=== PATIENT | female | born 1950 | race Caucasian/White ===

== ENCOUNTER 2024-11-29 13:21 | Outpatient (CLI) | payer MEDICARE, SELFPAY ==
--- NOTE | ~2024-11-29 | XR_ITS ---
EXAMINATION: XR sacrum coccyx min 2V, 11/29/2024 13:36 CDT HISTORY: URGE INCONTINENCE COMPARISON: No comparisons available. Findings: No acute fracture or malalignment. Mild sclerosis of the sacroiliac joints, no erosions or bridging osteophyte formation. Soft tissues unremarkable. Impression: No acute fracture or malalignment. Reviewed, dictated and finalized at location P. Impression: No acute fracture or malalignment.
--- OUTSIDE RECORDS SUMMARY | 2024-11-29 13:56 | XMS_ITS | Data Portability ---
Author Organization [facility], [address] [facility] ([place]) Address [address] 4th [place] [address] Care Team Providers Care Dermatology Physician Assistant Name Role Phone REGGIE RASMUSSEN Primary Care Provider ASHLEY MATA Product Safety Officer Assessment Encounter Date Assessment Date Assessment LastModified by Organization Details LastModified Time 08/27/2023 08/27/2023 1. Irritated seborrheic keratoses : We discussed the benign nature of the lesions and that it is legitimately irritated. The risks and benefits of the procedure, the risks and benefits of alternative procedures, as well as the possible consequences of not undergoing the procedure were discussed. The potential for recurrence and development of further lesions was discussed. The patient verbalizes understanding and gives consent to proceed. The lesions were treated with liquid nitrogen. The patient tolerated the procedure well. Post-treatment instructions were discussed. 2. Seborrheic keratoses: We discussed the fact that these are benign lesions requiring no treatment. The patient was advised that more such lesions may develop. The patient is not bothered by the lesions and does not wish to have them treated. We will observe. 3. We discussed the fact that lentigines are actinically induced and that they are benign. We discussed the fact that they should be watched carefully for change. We discussed the importance of photoprotection using protective clothing and sunscreen with SPF thirty or higher on a regular basis. Return prn and in [address] Love as scheduled. Ketty left without further questions or concerns. [email or web address] Not available 08/27/2023 09:25:06 04/21/2024 04/21/2024 HISTORY OF PRESE NT ILLNESS: Ms. Pierre is a 73-year-old female who presents for her annual follow-up for history of right breast early stage cancer hormone receptor positive and HER2/bernardo low. She was diagnosed in 2012 and completed endocrine therapy in 2018 and since then has been on annual follow-up. Today she denies any complaints of breast pain or lump. Her last mammogram in October 2023 was unremarkable. The patient informs today regarding the use of topical vaginal cream for her history of urinary incontinence. The patient has questions regarding that. No chest pain, palpitations or shortness of breath. Her appetite and energy are overall stable. REVIEW OF SYSTEMS: CONST: Appetite unchanged. No weight loss or new pain. EYES: No visual change. ENT: Hearing normal. No swallowing difficulties. RESP: No shortness of breath, or new cough. CV: No chest pain, syncope, or increased edema. GI: No change in bowel habits. No blood in the stool. : No dysuria, hematuria, or flank pain. MSK: No new bone pain. SKIN: No rashes. NEURO: No headaches/dizzines s. H/L/IMM: No enlarged lymph nodes, easy bleeding, or bruising. Reviewed past medical history, surgical history, family history, social history. No changes except as noted. PHYSICAL EXAMINATION: CONST: Alert and oriented. Pleasant, appears to be of stated age, in no acute distress. EYES: No icterus. Extraocular movements are intact. No conjunctival pallor. ENT: Oral mucosa pink and moist with no oral ulcers. Neck: Supple, no palpable mass. RESP: The lungs are clear to auscultation without wheezes, rhonchi. CV: Heart rhythm is regular. GI: Abdomen soft, nontender; no hepatosplenomegaly . MSK: Head: Atraumatic. Normocephalic. No edema in lower extremities. SKIN: No jaundice. Warm, well perfused. No generalized skin rash. PSYCH: Stable mood and affect. Mental/emotional status is appropriate. NEURO: No speech difficulty. The patient is alert and oriented x3. No gross neurological deficits are noted. H/L/IMM: No palpable cervical, supraclavicular or axillary adenopathy. Performance status 0. BREAST: Right breast skin and nipple normal with no palpable masses, axillary lymph nodes. Left breast skin and nipple normal with no palpable masses, axillary lymph nodes. DATA REVIEWED: Reviewed 12-point review of systems, past medical history, surgical history, family history, social history. No changes except as noted. ASSESSMENT: 1. A 73-year-old postmenopausal female with stage I, pT1aNX right breast invasive ductal cancer, grade 2, ER positive, RI negative, HER2/bernardo negative diagnosed 2012, post 5 years of tamoxifen completed in 2018. 2. Osteopenia with compression deformity T and L-spine/osteoporos is. 3. Hysterectomy with bilateral oophorectomies. COMORBIDITIES: Coronary artery disease. PLAN: 1. Discussed with the patient the clinical symptoms, diagnosis, and plan. The patient clinically does not have any concerns for recurrence and her examination is unremarkable. We reviewed the patient's mammogram from October 2023 which was stable. Another mammogram for October 2024 was ordered. 2. She will continue with monthly self-examination. The patient is also encouraged for weightbearing exercises. 3. We discussed the role of topical estrogen for postmenopausal health, but the side effects of systemic absorption with her underlying risk of estrogen positive breast cancer. The patient is encouraged to use topical estrogen 3 times a week as needed. She will discuss with her specialist. 4. Her next colonoscopy in due in April 2032. 5. Continue cardiac medication and heart-healthy diet. Follow up in one year. saw tyrell Not available 04/22/2024 09:32:07 06/15/2024 06/15/2024 1. We discussed the fact that lentigines are actinically induced and that they are benign. We discussed the fact that they should be watched carefully for change. We discussed the importance of photoprotection using protective clothing and sunscreen with SPF thirty or higher on a regular basis. 2. Seborrheic keratoses: We discussed the fact that these are benign lesions requiring no treatment. The patient was advised that more such lesions may develop. The patient is not bothered by the lesions and does not wish to have them treated. We will observe. Quote sheet given to patient. 3. Hemangiomas: We discussed the fact that these are benign lesions requiring no treatment. The patient was advised that more such lesions may develop. The patient is not bothered by the lesions and does not wish to have them treated. We will observe. 4. Lesion on left nasolabial fold. Probable Cyst vs IDN. We discussed the differential diagnosis. She is not bothered by lesion, we will observe. I asked her to return in 1.5-[address] Love. Ketty will call with any questions or concerns in the meantime. [email or web address] Not available 06/15/2024 17:12:48 Plan of Treatment Reminders Order Date Submit Date Provider Last Modified By Organization Details Last Modified Time Details Appointments [facility] Patient 20.EST 2025 10:30A M Dr. Lisseth Chauhan Not available Not available Not available Annual [facility] Visit 15.EST 2025 01:00P M Winter Teague Not available Not available Not available [facility] Patient 10.EST 2025 10:40A M Dr. Nara Love Not available Not available Not available Lab None recorded . Referral None recorded . Procedures None recorded . Surgeries None recorded . Imaging MAMMO, screenin g, digital, bilatera l 2023 024 [email or web address] Tx Only - Tx Radiology, [facility] [place] [address], [id number], 01/22/2024 08:55:36 Medication Orders None recorded . Patient TargetsNo targets recorded. Patient Instructions Encounter Date Encounter Id Patient Instructions Last Modified By Organization Details Last Modified Time 08/19/2023 [id number] Pap smear guidelines discussed. Aware no longer needs Pap smears. Self-breast exam instructions reviewed. STD prevention discussed. Healthy diet and exercise was encouraged. Mammogram screening recommended and order given. Encouraged pt to remain up to date with colonoscopy screening. Bone health discussed. Encouraged calcium and vitamin D supplementation. Encouraged pt to remain up to date with bone density scan. Osteoporosis managed per PCP. Post-menopausal bleeding precautions were given. Pt states she will f/u with Pcp per [facility] for c/o worsening urinary incontinence and managment of oxybutynin. [email or web address] Not available 08/19/2023 12:24:12 Reason for Referral None Reported. Results Created Date Observation Date Name Description Value Unit Range Abnormal Flag Note LastModifiedBy Organization Detail LastModifiedTime 10/28/19 24 10/28/2023 MAMMO , scree mike, tomos ynthe sis, bilat eral [facility] [address] [place] [address] [phone] Name: KETTY EDWRADS Age: 73 : 1950 Exam Date: 2023 ACCESS ION: [id number] CLINIC AL HISTOR Y: Heidien t is 73 years old and is seen for screen ing. The patien t has a histor y of lumpec faustino proced ure for invasi ve ductal carcin eliot in the right axilla in May, and Stereo tactic core biopsy proced ure reveal ed ductal carcin eliot-in -situ in the right breast in May,. The patien t has the follow ing family histor y of breast cancer : matern al grandm other, at age 60, Unspec ified cancer . No BRCA test taken. No PALB2 test taken. FILMS COMPAR ED: The presen t examin ation has been compar ed to prior imagin g [facility], and at [facility] on 2020, 2021 and 2022. MAICOL MAMMOG JUDIT: Views perfor med: Bilate ral CC w/ Maicol; bilate ral MLO w/ Maicol. There are scatte red areas of fibrog landul ar densit y. There are no suspic ious masses , calcif icatio ns or areas of ced ectura l distor tion. IMPRES HERNANDO: There is no mammog raphic eviden ce of malign taqueria. A routin e follow -up mammog judit in 1 year is recomm ended. The patien t will be entere d into an automa oumou remind er system to schedu le a mammog judit in 1 year. The patien t has been or will be contac oumou with the result s of this exam. ACR BI-RAD S Catego ry 1 - Negati ve To report a qualit y concer n regard ing this report , please call the Medica l Imagin g Qualit y Assura nce [place] e at press zero to reach the Radiol ogist. Electr onical ly signed by: TALHA FERNANDEZ MD Final Report Dictat ed: 12:22 Ahmet RODRIGUEZ, Talha ferguson Signed : 12:22 Ahmet RODRIGUEZ, Talha grijalva Tx Only - [facility] [address] [place] [address], [id number], 10/28/2023 14:18:31 10/29/19 25 10/28/2024 destin 3D [facility] [address] [place] [address] Name: KETTY EDWARDS Age: 74 : 1950 Exam Date: 2024 ACCESS ION: [id number] CLINIC AL HISTOR Y: Chen astudillo is 74 years old and is seen for screen ing. The chen t has a histor y of lumpec faustino proced ure for invasi ve ductal carcin eliot in the right axilla in May, and Stereo tactic core biopsy proced ure reveal ed ductal carcin eliot-in -situ in the right breast in May,. The chen astudillo has the follow ing family histor y of breast cancer : 2 matern al grandm others , at age 60, Unspec ified cancer . No PALB2 test taken. FILMS COMPAR ED: The presen t examin ation has been compar ed to prior imagin g studie s perfor med at [facility] on 2017 and 2019, and at [facility] on 2018, 2020, 2021, 2022 and 2023. MAICOL MAMMOG JUDIT: Views perfor med: Bilate ral CC w/ Maicol; bilate ral MLO w/ Maicol. There are scatte red areas of fibrog landul ar densit y. There are no suspic ious masses , calcif icatio ns or areas of ced ectura l distor tion. IMPRES HERNANDO: There is no mammog raphic eviden ce of malign taqueria. A routin e follow -up mammog judit in 1 year is recomm ended. The patien t will be entere d into an automa oumou remind er system to schedu le a mammog judit in 1 year. The patien t has been or will be contac oumou with the result s of this exam. ACR BI-RAD S Catego ry 1 - Negati ve Electr onical ly signed by: TALHA FERNANDEZ MD Final Report Dictat ed: 13:18 Talha Fernandez MD Signed : 13:18 Ahmet RODRIGUEZ, Talha grijalva Tx Only - [facility] [address] [place] [address], [phone], 10/28/2024 14:30:17 10/29/19 25 10/28/2024 MAMMO , scree mike, tomos ynthe sis, bilat eral No observ ation record ed. JOSE JUAN Not Available 2024 17:12:58 Result Notes Documentation Provider Name and Address Organization Details Recorded Time Mammo, Screening, Tomosynthesis, Bilateral : [facility] [address] [place] [address] Name: KETTY PIERRE Age: 73 : 1950 Exam Date: 10/28/2023 CLINICAL HISTORY: Patient is 73 years old and is seen for screening. The patient has a history of lumpectomy procedure for invasive ductal carcinoma in the right axilla in May, and Stereotactic core biopsy procedure revealed ductal kniijtsvx-oi-gqhc in the right breast in May,. The patient has the following family history of breast cancer: maternal grandmother, at age 60, Unspecified cancer. No BRCA test taken. No PALB2 test taken. FILMS COMPARED: The present examination has been compared to prior imaging studies performed at [facility] on 07/13/2019, and at [facility] on 07/18/2020, 10/18/2021 and 10/22/2022. MAICOL MAMMOGRAM: Views performed: Bilateral CC w/ Maicol; bilateral MLO w/ Maicol. There are scattered areas of fibroglandular density. There are no suspicious masses, calcifications or areas of architectural distortion. IMPRESSION: There is no mammographic evidence of malignancy. A routine follow-up mammogram in 1 year is recommended. The patient will be entered into an automated reminder system to schedule a mammogram in 1 year. The patient has been or will be contacted with the results of this exam. ACR BI-RADS Category 1 - Negative To report a quality concern regarding this report, please call the Medical Imaging Self Storage Manager Hotline at [phone] press zero to reach the Radiologist. Electronically signed by: SHAQ FERNANDEZ MD Final Report Dictated: 28-OCT-23 12:22 Ahmet RODRIGUEZ, Shaq Signed: 28-OCT-23 12:22 Ahmet RODRIGUEZ, Shaq Teague APRN, FIRE SYSTEMS INSPECTOR [address] [place] [address], [phone], [facility] 10/28/2023 14:18:31 Mammo, Screening, Tomosynthesis, Bilateral : This document (1 of 1) was received from [email or web address] on 10/28/2024 through Direct Message along with the following message body content: You have received a 3 page fax at 10/28/2024 8:46:20 PM. * The Caller-ID for this fax is unknown. If you have any questions regarding this message or your service contact Corporate Support: [place] Email: [email or web address] Phone: or Email: [email or web address] [email or web address] Phones: [phone] Thank you for using the [employer] service! Not Available [facility] 10/30/2024 02:43:38 Problems Name Problem SNOMED Code Status Onset Date Resolution Date Notes Provider Name and Address Organization Details Recorded Time Inflamed seborrheic keratosis 674007705 Active 2023 Marcello Regan PA-C [address] [place] [address], [phone], [facility] 4 09:23:41 Seborrheic keratosis 282795208 Active 2023 satinder Hollingsworth [facility] 5 16:23:23 Lentigo - freckle 814454632 Active 2023 Marcello Regan PA-C [address] [place] [address], [phone], [facility] 4 09:23:55 Infiltrating ductal carcinoma of breast, stage 1 923160765 Active 2024 [facility] 5 15:45:01 Osteopenia 932761585 Active 2024 [facility] 5 15:45:15 Lentiginosis 506962738 Active 2024 satinder Hollingsworth [facility] 5 16:23:50 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 Procedures Surgical History Date Name Laterality Status Provider Name and Address Organization Details Recorded Time Prq card stent w/angio 1 vsl completed Not Available Health Note 08/12/2023 13:03:13 Colonoscopy with biopsy completed Not Available Health Note 08/12/2023 13:03:13 Partial hysterectomy completed Not Available Health Note 08/12/2023 13:03:13 Imaging Results None recorded. Procedure Notes None recorded. Medical Equipment None Reported. Allergies Allergen ID Allergen Name Allergen Category Reaction Reaction Severity Criticality Documentation Date Start Date Code Code System Note Provider Name and Address Organization Details Recorded Time 606576 Substance with tetracycl ine structure (substanc e) medicatio n anaphylax is Not available Not available 03/31/20232007 41815 8001 SNOMED React ion: Throa t Swell ing; Not Available [facility] 4 23:36:09 Medications Name Sig Start Date Stop Date Status Note LastModified by Organization Details LastModified Time atorvastatin 10 mg tablet active Not Available Not Available Not Available oxybutynin chloride ER 10 mg tablet,extende d release 24 hr active Not Available Not Available Not Available metoprolol succinate ER 100 mg tablet,extende d release 24 hr active Not Available Not Available Not Available triamcinolone acetonide 55 mcg nasal spray aerosol USE 2 SPRAYS IN EACH NOSTRIL EVERY NIGHT AT BEDTIME active Not Available Not Available No t Available nitroglycerin 0.4 mg sublingual tablet active Not Available Not Available Not Available metoprolol succinate ER 25 mg tablet,extende d release 24 hr active Not Available Not Available Not Available estradiol 0.01% (0.1 mg/gram) vaginal cream APPLY PEA SIZE AMOUNT DIRECTLY TO URETHRAL OPENING DAILY active Not Available Not Available No t Available nitrofurantoin monohydrate/ma crocrystals 100 mg capsule TAKE 1 CAPSULE BY MOUTH TWICE DAILY active Not Available Not Available No t Available trospium 20 mg tablet TAKE 1 TABLET BY MOUTH DAILY FOR 1 WEEK. INCREASE TO TAKING 1 TABLET 2 TIMES DAILY active Not Available Not Available No t Available Gemtesa 75 mg tablet TAKE 1 TABLET BY MOUTH DAILY active Not Available Not Available No t Available Vitals Date Recorded Body height Oxygen saturation Oxygen saturation in Arterial blood by Pulse oximetry Heart rate Respiratory rate Body temperature Body mass index (BMI) Body weight Systolic And Diastolic Provider Name and Address Organization Details Last Updated DateTime 5 163.83 cm 100 % 100 % 58 /min 18 /min 97.7 [degF] 19.1 kg/m2 27719.9 4 g 128/74 mm[Hg] Bridget Paul [facility] 5 10:12:48 Date Recorded Body height Heart rate Oxygen saturation Oxygen saturation in Arterial blood by Pulse oximetry Provider Name and Address Organization Details Last Updated DateTime 06/15/2024 163.83 cm 79 /min 100 % 100 % Timmy Hollingsworth [facility] 06/15/2024 16:19:55 Date Recorded Body height Body mass index (BMI) Body weight Systolic And Diastolic Provider Name and Address Organization Details Last Updated DateTime 08/19/2023 163.83 cm 18.4 kg/m2 85919.85 g 124/74 mm[Hg] Coral Delgado [facility] 08/19/2023 12:10:09 Date Recorded Body height Body mass index (BMI) Body weight Heart rate Oxygen saturation Oxygen saturation in Arterial blood by Pulse oximetry Provider Name and Address Organization Details Last Updated DateTime 163.83 cm 18.9 kg/m2 63118.3 5 g 66 /min 99 % 99 % Timmy Hollingsworth [facility] 09:07:57 Social History Question Answer Notes LastModified by English Helper Details LastModified Time Do You Have An Advance Directive? Yes [email or web address] Information not available 08/20/2023 What Is Your Level Of Caffeine Consumption? Moderate [email or web address] Information not available 08/20/2023 What Is Your Code Status? DNR [email or web address] Information not available 08/20/2023 How Many Times Per Week Do You Exercise? 3-4 Times Per Week [email or web address] Information not available 08/20/2023 Do You Have A Medical Power Of Tunnel Mucker? Yes [email or web address] Information not available 08/20/2023 What Was The Date Of Your Most Recent Tobacco Screening? 08/27/2023 [email or web address] Information not available 08/20/2023 What Is Your Relationship Status? [email or web address] Information not available 08/20/2023 Sex: Unknown Functional Status Question Answer Note LastModified by English Helper Details LastModified Time Do you use any illicit or recreational drugs? No [email or web address] Information not available 08/20/2023 What is your level of alcohol consumption? None [email or web address] Information not available 08/20/2023 Are you currently employed? No [email or web address] Information not available 08/20/2023 What is your occupation? Retired [email or web address] Information not available 08/20/2023 What is your exercise level? Occasional [email or web address] Information not available 08/20/2023 Mental Status None recorded. Family History Relationship Description Onset Age of this Age Resolved Age Notes LastModified by Organization Details LastModified Time Mother Diabetes mellitus [email or web address] Not available 2023 13:03:12 Mother Osteoporosis [email or web address] Not availa ble 08/12/2023 13:03:12 Mother Disorder of thyroid gland [email or web address] Not available 2023 13:01:14 Father Heart disease [email or web address] Not available 2023 13:03:12 Maternal Grandfather Osteoporosis [email or web address] Not available 0 08/12/2023 13:03:12 Maternal Grandmother Alzheimer's disease [email or web address] Not available 2023 13:01:14 Maternal Grandmother Family history of malignant neoplasm [email or web address] Not available 2023 13:01:14 Maternal Grandmother Hypertensive disorder [email or web address] Not available 2023 13:01:14 Unspecified Relation Hypercholest erolemia [email or web address] Not available 2023 13:01:14 Sister Osteoporosis [email or web address] Not availa ble 08/20/2023 13:01:14 Medical History Condition Response Diabetes N Anxiety Disorder N Bleeding Disorder N Attention-deficit Hyperactivity Disorder N High Blood Pressure Y Arthritis N Hyperlipidemia N Cancer Y Stroke N Thyroid Problems N Asthma N Depression N COPD N Anemia N Seizures N Heart Disease Y Fibromyalgia N Osteoporosis Y Kidney Disease N Gynecological HistoryNo gynecological history recorded. Obstetrics History GPAL:G 0 P 0 0 0 0 Past Encounters Encounter ID Performer Location Encounter Start Date Encounter Closed Date Diagnosis/Indication Diagnosis SNOMED-CT Code Diagnosis ICD10 Code Diagnosis IMO Codes Diagnosis Note [id number] [facility] ([place] [address] [place] [address] [place] [address] 08/27/2023 08:47:07 08/27/2023 09:57:02 Inflamed seborrheic keratosis 611232619 L82.0 Seborrheic keratosis 394 758212 L82.1 Lentigo - freckle 145116 006 L81.4 [id number] Winter Teague, TUBE REPAIRER, FIRE SYSTEMS INSPECTOR [address] [facility] ([place]) [address] [place] [address] [place] [address] 08/19/2023 11:52:11 08/19/2023 15:19:49 Gynecologic examination 62642082 Z01.419 Additional diagnosis detail: Encounter for gynecologi gopi examinatio n Screening mammography 24 287839 Z12.31 Additional diagnosis detail: Screening mammogram, encounter for [id number] Lisseth Chauhan MD [address] [facility] ([place]) [address] [facility] [place] [address] 04/21/2024 09:56:55 04/21/2024 12:40:47 Infiltrating ductal carcinoma of breast, stage 1 814138298 C50.911 92777523 Osteopenia 789807636 M85 .80 [id number] [facility] ([place]) [address] [place], [place] [address] [address] 06/15/2024 15:54:25 06/15/2024 17:01:57 Seborrheic keratosis 621835909 L82.1 59559 Lentiginosis 414475649 L 81.4 4749013 Hemangioma of skin 19905 006 D18.01 446473 Health Concerns Section Related Observation LastModified by Organization Detai ls LastModified Time None Recorded Concern Status LastModified by Organization Details LastModified Time None Recorded Advance Directives Directive Y: Payers Insurance Date Sequence Insurance Name Policy Number Policy Robison Covered Member ID Robison Member ID Guarantor Name 06/16/2024 1 [employer] (MEDICARE REPLACEMENT/ ADVANTAGE - PPO) [id number] Ketty Pierre [id number] Ketty Pierre Notes Date Note Type Note Provider Name and Address Organization Details Recorded Time 08/19/2023 text/html Patient here for annual gynecology exam. She is a . She has c/o worsening urinary incontinence. The patient denies pelvic pain, abnormal vaginal discharge, breast problems, urinary symptoms, vasomotor symptoms, mood changes and bowel problems. The patient does self breast exams on occasion, does not have adequate calcium intake, she does not take a calcium supplement and she exercises regularly. She maintains a healthy diet. The patient is a non-smoker. The patient had a AMA for fibroids in 1989.The patient has had no changes in medical/surgical history since her last office visit.The patient is not currently sexually active. Last Mammogram: 10/22/2022Last Colonoscopy: 04/04/2022Last Bone Density: 10/2022 through [facility]- OsteoporosisLast pap: 05/29/1999 performed by: JAVI result: NegHistory of Abnormal Paps: NoHistory of Gestational Diabetes: NoHistory of Gestational Hypertension: NoHereditary Breast and Ovarian cancer screen: N/AHepatitis C: Declined - 05/22/2019 Winter Teague, YOGESH, [employer] [address] [place] [address], [phone], [facility] 08/20/2023 09:22:41 08/27/2023 text/html ROS as noted in the HPI EPVDate last seen:06/24/2022 Gown: No Reason For Visit: New lesion Duration: Months Location: Chest Quality: ____painful ____bleeding ____itching ____not healing ____burning ____scabbing __x__asymptomatic Prior Treatment: no prior treatment Past History of Skin Cancer: None Family History: History of skin cancerOther concerns: None History of Present Illness documented by nursing staff, verified and amended as necessary by the attending provider who electronically signs this note. Marcello Regan PA-C [address] [place] [address], [phone], [facility] 08/27/2023 09:26:55 04/21/2024 text/html DIAGNOSES: 1 . Stage I Tiny (1.5 mm) pT1a pNX cM0, ER positive/RI negative, HER-2/bernardo negative right breast carcinoma with associated DCIS, status post lumpectomy May 26, 2012. She completed radiotherapy and started tamoxifen August 2012 completed in August 2017. 2 . Elevated cholesterol. 3 . Hysterectomy for benign disease, with ovaries intact. 4 . Osteopenia with a history of Fosamax use. 5 . Compression deformity on x-ray at [facility] April 2016. 6 . Coronary artery disease status post stent July 2016. [facility] COMPLAINT: Breast cancer followup. PAST, FAMILY, AND/OR SOCIAL HISTORY: P ast History: See diagnosis list. F amily History: No change in family medical problems since June 03, 2012. Patient's paternal aunt was diagnosed with breast cancer in 2019 at age 82. S ocial History: She is , no history of smoking or drinking. She is fairly active. H rolando maintenance S he will be due for her colonoscopy in 2022. Lisseth Chauhan MD [address] [place] [address], [phone], [facility] 04/26/2024 07:20:15 06/15/2024 text/html EPVGown: YesDate last seen: 08/27/2023 Patient presents today for recheck of their skin. Patient has no history of skin cancer. New/changing moles or lesions: Yes- face. Duration: Months Associated symptoms: itching: No pain: No tenderness: No growth: No bleeding: No drainage: No color change: No scaling: No topical treatments applied: No Other concerning lesions: No Other concerns regarding skin: No Regular performance of self skin examinations: Yes Major change in health status since last visit: NoOther concerns: None Ms. Pierre was informed that Dr. Love is the supervising physician for MARCELLO REGAN (Derm) and the physician is in the office available for consultation. History of Present Illness documented by nursing staff, verified and amended as necessary by the attending provider who electronically signs this note. Marcello Regan PA-C [address] [place] [address], [phone], [facility] 06/15/2024 17:13:12 OBGyn Episode No OBEpisode recorded.
== END 2024-11-29 13:22 | disposition home or self-care (01) ==
PROVIDERS: Visit Provider Urology
DX: N39.41 Urge incontinence (principal)
CPT/HCPCS: 72220